=== PATIENT | female | born 1965 | race Caucasian/White ===

== ENCOUNTER 2017-06-03 12:17 | Emergency (ER) | payer BC ==
[~2017-06-03] VITALS: Ht 162.6 cm; Wt 60.0 kg
[~2017-06-03 12:17] MED LIST: ADVI200C9 PO; ANTISOL30 LEFT EAR; AUGM875T PO; CIPR0.3S LEFT EAR; CLON1 PO; NEUR100C PO; RELP40TA PO; VICO10TA PO
[2017-06-03 12:19] VITALS: BP 118/84; PULSE 90; RESP 20; TEMP 97.8; O2SAT 98
[2017-06-03] MEDS ORDERED: CLON1 PO (13:00)
[2017-06-03] MEDS ORDERED: HYDR-3583 PO (13:00)
[2017-06-03] MEDS ORDERED: SODIUM CHLORIDE 0.9% FLUSH 10 ML FLUSH IV FLUSH PRN (13:30)
[2017-06-03] MEDS ORDERED: SODIUM CHLOR 0.9% 1000 ML INJ 1,000 ML IV SCH (13:30)
[2017-06-03 13:53] LABS: AUTOMATED NEUTROPHIL # 3.8 TH/MM3 (1.8-7.7); BASOPHIL % 0.6 % (0.0-2.0); EOSINOPHIL # 0.1 TH/MM3 (0-0.4); EOSINOPHIL % 0.8 % (0.0-4.0); HEMATOCRIT 39.4 % (35.0-46.0); HEMO FLAGS DIFF FINAL; LYMPHOCYTE # 2.2 TH/MM3 (1.0-4.8); MEAN CELL VOLUME 89.9 FL (80.0-100.0); MEAN CORPUSCULAR HEMOGLOBIN 30.8 PG (27.0-34.0); MEAN CORPUSCULAR HGB CONC 34.2 % (32.0-36.0); MONO % 4.8 % (0.0-8.0); NEUT % 59.8 % (16.0-70.0); PLATELET COUNT 290 TH/MM3 (150-450); RED BLOOD COUNT 4.38 MIL/MM3 (4.00-5.30); RED CELL DISTRIBUTION WIDTH 12.5 % (11.6-17.2); WHITE BLOOD COUNT 6.4 TH/MM3 (4.0-11.0)
[2017-06-03 13:58] LABS: BACTERIA, URINE RARE /hpf; BLOOD, URINE SMALL (NEG); GLUCOSE,URINE NEG (NEG); KETONE, URINE NEG (NEG); MUCUS URINE FEW /lpf (OCC); NITRITE,URINE NEG (NEG); PH, URINE 5.5 (5.0-8.5); SQUAMOUS EPITHELIAL CELL URINE 3 /hpf (0-5); URINE COLOR YELLOW (YELLW/STRAW)
[2017-06-03 13:59] LABS: COMMENT (UR) CULT NOT INDICATED; CULTURE IF INDICATED CULT NOT INDICATED
[2017-06-03 14:13] LABS: ANION GAP 6 MEQ/L (5-15); AST (GOT) 13 U/L (15-37); BICARBONATE 27.8 MEQ/L (21.0-32.0); BLOOD UREA NITROGEN 9 MG/DL (7-18); CHLORIDE 104 MEQ/L (98-107); GLOMERULAR FILTRATION RATE 65 ML/MIN (>89); POTASSIUM 4.1 MEQ/L (3.5-5.1); SODIUM (NA) 138 MEQ/L (136-145)
[2017-06-03 14:15] LABS: ALT (GPT) 18 U/L (10-53)
[2017-06-03 14:17] LABS: ALKALINE PHOSPHATASE 51 U/L (45-117); TOTAL BILIRUBIN ADULT 0.2 MG/DL (0.2-1.0)
--- NOTE | 2017-06-03 15:05 | PD ---
HPI Chief Complaint: Abdominal Pain Time Seen by Provider: 13:21 Travel History International Travel<30 days: No Contact w/Intl Traveler<30days: No Traveled to known affect area: No History of Present Illness HPI So 52 year-old woman who presents to the emergency department complaining of abdominal pain. She states is been pain in her back rating in the right flank. She went to see her OB doctor who did an exam and a pelvic sonogram and said it was normal but referred to the emergency department for further evaluation. She history of some back problems in the past, takes opiates regularly for "joint pain" besides her back. She was diagnosed with rheumatoid arthritis and SLE as well as possible fibromyalgia but is not taking any immune modulators at this time. History Past Medical History Narrative Medical History of RA and SLE per report Possible fibromyalgia On chronic opiates for nondescript joint pain Tetanus Vaccination: > 5 Years Influenza Vaccination: No Social History Alcohol Use: Yes (rare) Tobacco Use: No Allergies-Medications (Allergen,Severity, Reaction): Coded Allergies: No Known Allergies (Verified , 06/03/17) Reported Meds & Prescriptions Reported Meds & Active Scripts Active Reported Hydrocodone-Acetaminophen 10-325 mg Tab 1 Tab PO BID PRN Klonopin (Clonazepam) 1 Mg Tab 1 Mg PO BID Review of Systems Except as stated in HPI: all other systems reviewed are Neg Physical Exam Narrative GENERAL: 52 year-old woman, well-appearing, no acute distress. SKIN: Focused skin assessment warm/dry. HEAD: Atraumatic. Normocephalic. EYES: Pupils equal and round. No scleral icterus. No injection or drainage. ENT: No nasal bleeding or discharge. Mucous membranes pink and moist. NECK: Trachea midline. No JVD. CARDIOVASCULAR: Regular rate and rhythm. No murmur appreciated. RESPIRATORY: No accessory muscle use. Clear to auscultation. Breath sounds equal bilaterally. GASTROINTESTINAL: Abdomen soft, non-tender, nondistended. Hepatic and splenic margins not palpable. MUSCULOSKELETAL: No obvious deformities. A lot of stiffness and guarding with moving the back. NEUROLOGICAL: Awake and alert. No obvious cranial nerve deficits. Motor grossly within normal limits. Normal speech. PSYCHIATRIC: Appropriate mood and affect; insight and judgment normal. Data Data Last Documented VS Vital Signs Date Time Temp Pulse Resp B/P (MAP) Pulse Ox O2 Delivery O2 Flow Rate FiO2 06/03/17 16:00 97.9 86 16 110/78 (89) 99 Room Air Orders Orders Complete Blood Count With Diff (06/03/17 13:30) Comprehensive Metabolic Panel (06/03/17 13:30) Lipase (06/03/17 13:30) Urinalysis - C+S If Indicated (06/03/17 13:30) Iv Access Insert/Monitor (06/03/17 13:30) Sodium Chlor 0.9% 1000 Ml Inj (Ns 1000 M (06/03/17 13:30) Sodium Chloride 0.9% Flush (Ns Flush) (06/03/17 13:30) Ct Abd/Pel W/O Iv Contrast (06/03/17 ) Labs Laboratory Tests Test 06/03/17 13:30 06/03/17 13:35 Urine Color YELLOW Urine Turbidity HAZY Urine pH 5.5 Urine Specific [place] 1.013 Urine Protein NEG mg/dL Urine Glucose (UA) NEG mg/dL Urine Ketones NEG mg/dL Urine Occult Blood SMALL Urine Nitrite NEG Urine Bilirubin NEG Urine Urobilinogen LESS THAN 2.0 MG/DL Urine Leukocyte Esterase TRACE Urine RBC 1 /hpf Urine WBC 3 /hpf Urine Squamous Epithelial Cells 3 /hpf Urine Bacteria RARE /hpf Urine Mucus FEW /lpf Microscopic Urinalysis Comment CULT NOT INDICATED White Blood Count 6.4 TH/MM3 Red Blood Count 4.38 MIL/MM3 Hemoglobin 13.5 GM/DL Hematocrit 39.4 % Mean Corpuscular Volume 89.9 FL Mean Corpuscular Hemoglobin 30.8 PG Mean Corpuscular Hemoglobin Concent 34.2 % Red Cell Distribution Width 12.5 % Platelet Count 290 TH/MM3 Mean Platelet Volume 6.8 FL Neutrophils (%) (Auto) 59.8 % Lymphocytes (%) (Auto) 34.0 % Monocytes (%) (Auto) 4.8 % Eosinophils (%) (Auto) 0.8 % Basophils (%) (Auto) 0.6 % Neutrophils # (Auto) 3.8 TH/MM3 Lymphocytes # (Auto) 2.2 TH/MM3 Monocytes # (Auto) 0.3 TH/MM3 Eosinophils # (Auto) 0.1 TH/MM3 Basophils # (Auto) 0.0 TH/MM3 CBC Comment DIFF FINAL Differential Comment Blood Urea Nitrogen 9 MG/DL Creatinine 0.91 MG/DL Random Glucose 89 MG/DL Total Protein 7.3 GM/DL Albumin 4.2 GM/DL Calcium Level 9.7 MG/DL Alkaline Phosphatase 51 U/L Aspartate Amino Transf (AST/SGOT) 13 U/L Alanine Aminotransferase (ALT/SGPT) 18 U/L Total Bilirubin 0.2 MG/DL Sodium Level 138 MEQ/L Potassium Level 4.1 MEQ/L Chloride Level 104 MEQ/L Carbon Dioxide Level 27.8 MEQ/L Anion Gap 6 MEQ/L Estimat Glomerular Filtration Rate 65 ML/MIN Lipase 81 U/L [facility] Medical Decision Making Medical Screen Exam Complete: Yes Emergency Medical Condition: Yes Interpretation(s) LABS: CBC is unremarkable. CMP is unremarkable. This is normal. UA is unremarkable. CT abdomen and pelvis: Negative. Differential Diagnosis Back strain or sprain, abdominal pain, kidney stone, other Narrative Course Medical decision making Is a 52-year-old woman presents emergency department for flank pain. She looks well. I think is probably musculoskeletal. Some concern for kidney stone. We' ll check labs, reassess. Diagnosis Primary Impression: Flank pain Additional Instructions: Follow-up with your primary doctor in the next 2-4 days. Take Naprosyn as prescribed. Return to the emergency department for any new or worsening symptoms. Med/Other Pt SpecificInfo: Prescription(s) given Scripts Naproxen (Naproxen) 500 Mg Tab 500 MG PO BID for 7 Days, #14 TAB 0 Refills Prov: Jae Meneses MD 06/03/17 Disposition: 01 DISCHARGE HOME Condition: Stable Jae Meneses MD Jun 03, 2017 15:05
[2017-06-03 16:00] VITALS: BP 110/78; PULSE 86; RESP 16; TEMP 97.9; O2SAT 99
--- NOTE | 2017-06-03 16:19 | RADRPT ---
EXAM DATE/TIME: 06/03/2017 14:54 [facility] COMPARISON: No previous studies available for comparison. INDICATIONS : Right abdominal pain, nausea and vomiting. ORAL CONTRAST: No oral contrast ingested. RADIATION DOSE: 7.55 CTDIvol (mGy) MEDICAL HISTORY : Gastroesophageal reflux disease. Ulcers. SURGICAL HISTORY : Cholecystectomy. Tubal ligation.Hysterectomy. ENCOUNTER: Initial ACUITY: 1 week PAIN SCALE: 5/10 LOCATION: Right lower quadrant TECHNIQUE: Volumetric scanning of the abdomen and pelvis was performed. Using automated exposure control and ad justment of the mA and/or kV according to patient size, radiation dose was kept as low as reasonably achievable to obtain optimal diagnostic quality images. DICOM format image data is available electro nically for review and comparison. FINDINGS: LOWER LUNGS: The visualized lower lungs are clear. LIVER: Homogeneous density without lesion. There is no dilation of the biliary tree. Patient is status post cholecystectomy. SPLEEN: Normal size without lesion. PANCREAS: Within normal limits. KIDNEYS: Normal in size and shape. There is no mass, stone, or hydronephrosis. ADRENAL GLANDS: Within normal limits. VASCULAR: There is no aortic aneurysm. BOWEL/MESENTERY: The stomach, small bowel, and colon demonstrate no acute abnormality. There is no free intraperitone al air or fluid. Appendix is identified and is radiographically normal. ABDOMINAL WALL: Within normal limits. RETROPERITONEUM: There is no lymphadenopathy. BLADDER: No wall thickening or mass. REPRODUCTIVE: Post hysterectomy. INGUINAL: There is no lymphadenopathy or hernia. MUSCULOSKELETAL: Bilateral pars fractures of L5. Dextroscoliosis of the thoracolumbar spine.. CONCLUSION: 1. Post surgical changes including cholecystectomy and hysterectomy. 2. Bilateral pars fractures at L5. 3. No acute intraperitoneal or pelvic process to explain current clinical symptoms. Appendix is radio graphically normal. Darrion Adamson MD on June 03, 2017 at 16:13 Board Certified Radiologist. This report was verified electronically.
[2017-06-03] MEDS ORDERED: NAPR500T PO (16:23)
[2017-06-03] MEDS ORDERED: KETOROLAC TROMETHAMINE 30 MG/ML (IVP) VIAL IVP ONE (16:30)
[2017-06-03 16:35] VITALS: BP 120/81; TEMP 97.8
== END 2017-06-03 16:42 | disposition home or self-care (01) ==
LOC: NEPD 12:17
DX: R10.9 Unspecified abdominal pain (principal); M06.9 Rheumatoid arthritis, unspecified; M32.9 Systemic lupus erythematosus, unspecified
CPT/HCPCS: 74176; 80053; 81001; 83690; 85025; 96361; 96374; 99285; J1885; J7030